=== PATIENT | female | born 1995 | race Caucasian/White ===

== ENCOUNTER → 2018-08-10 | Outpatient (CLI) | payer OTHER ==
--- NOTE | 2018-08-10 09:15 | RADIOLOGY IMAGING REPORT ---
FACILITY: [facility] PATIENT NAME: Yovana Carlos : 1995 MR: [id number] V: [id number] EXAM DATE: ORDERING PHYSICIAN: EUNICE HERMAN TECHNOLOGIST: Location: [facility] [place] Patient: Yovana Carlos : 1995 Visit/Account:[id number] Date of Sevice: 08/10/2018 Technique: CHEST PA AND LAT HISTORY: Positive TB test COMPARISON: None available Findings: The lungs are clear. No pleural effusion or pneumothorax. The cardiomediastinal silhouett e is normal. Impression: 1. No acute cardiopulmonary process. Report Dictated By: Bryant Otero DO at 08/10/2018 9:08 AM Report E-Signed By: Bryant Otero DO at 08/10/2018 9:10 AM WSN:[id number]
== END ==
LOC: RAD 08:36
PROVIDERS: ATTEND Nurse Practitioner Family
DX: Z20.1 Contact with and (suspected) exposure to tuberculosis (principal)
CPT/HCPCS: 71046